=== PATIENT | female | born 1930 | race Asian ===

== ENCOUNTER 2020-02-21 11:44 | Emergency (ER) | payer OTHER ==
[~2020-02-21] VITALS: Ht 157.5 cm; Wt 54.4 kg
[2020-02-21 11:44] VITALS: BP 134/69
--- NOTE | 2020-02-21 11:55 | NUR ---
89 Y/O F BIBA FROM [facility] C/O COFFEE GROUND EMESIS. PER [facility], CREW STATES ON 02/19, PT HAD ONE EPISODE OF VOMITING COFFEE GROUND EMESIS OF UNKNOWN AMOUNT. PT PRESENTS A&O X 1 TO SELF AND NONVERBAL. [facility] CREW STATES PER FACILITY, PT BASELINE SATURATION @ 88% ON ROOM AIR. PT PRESENT TO ER WITH BASELINE SATURATION 98% ON ROOM AIR. PER [facility], UNKNOWN OF PT BASELINE. LUNG SOUNDS CLEAR AND NO RESPIRATORY DISTRESS NOTED. PT PLACED ON SUPERVISOR TITLE, BLOOD PRESSURE CUFF, PULSE OX. VSS. BED LOCKED IN LOWEST POSITION, SIDE RAILS X2, CALL LIGHT IN REACH PMH: HTN, DM, HYPERLIPIDEMIA, ALZHEIMERS, SCHIZOPHRENIA NKA MEDS: ATORVASTATIN, METROPOLOL, XARELTO
--- NOTE | 2020-02-21 12:20 | NUR ---
CT AT BEDSIDE, WHEELED PT GURNEY TO CT. PT DISCONNECTED FROM HOROLOGIST.
--- NOTE | 2020-02-21 12:25 | NUR ---
LABS COLLECTED AND WALKED TO LAB. LEFT WITH COUNSELING PROGRAM LEADER
[2020-02-21 12:31] LABS: BASOPHILS % (AUTO) 0.3 % (0.0-2.0); EOSINOPHILS % (AUTO) 0.1 % (0.0-4.0); HEMATOCRIT 43.9 % (36-48); HEMOGLOBIN 14.4 g/dL (12.0-16.0); LYMPHOCYTES # (AUTO) 1.5 K/uL (2.5-16.5); LYMPHOCYTES % (AUTO) 15.1 % (20.5-51.1); MEAN CORPUSCULAR HEMOGLOBIN 28 pg (27-31); MEAN CORPUSCULAR HGB CONC 33 g/dL (33-37); MEAN CORPUSCULAR VOLUME 84.5 fL (80-94); MONOCYTES # (AUTO) 0.5 K/uL (0.8-1.0); MONOCYTES % (AUTO) 5.4 % (1.7-9.3); NEUTROPHILS # (AUTO) 7.7 K/uL (1.8-7.7); NEUTROPHILS % (AUTO) 79.1 % (42.2-75.2); PLATELET COUNT (AUTO) 96 K/uL (140-450); RED CELL DISTRIBUTION WIDTH 15.7 % (11.6-13.7); WHITE BLOOD COUNT (AUTO) 9.7 K/uL (4.8-10.8)
[2020-02-21] MEDS: FAMOTIDINE 20 MG/2 ML VIAL IVP ONE (12:39)
[2020-02-21] MEDS: ONDANSETRON 4 MG/2 ML VIAL IVP ONE (12:39)
[2020-02-21] MEDS: NACL 0.9% 500 ML IV ONE (12:40)
--- NOTE | 2020-02-21 12:40 | NUR ---
PT RETURNED FROM CT. PT PLACED BACK ONTO UNIVERSITY TEACHER, BLOOD PRESSURE CUFF, PULSE OX. BED LOCKED IN LOWEST POSITION, SIDE RAILS X2, CALL LIGHT IN REACH
[2020-02-21 12:51] LABS: ALBUMIN 3.5 g/dL (3.4-5.0); ANION GAP 13.7 (8-16); ASPARTATE AMINOTRANSFERASE 33 U/L (15-37); CARBON DIOXIDE 26.2 mmol/L (21-32); CHLORIDE 99 mmol/L (98-107); CREATININE 1.3 mg/dL (0.6-1.3); GLUCOSE 274 mg/dL (74-106); POTASSIUM 3.9 mmol/L (3.5-5.1); SODIUM SERUM 135 mmol/L (136-145); TOTAL BILIRUBIN 0.7 mg/dL (0.0-1.0); UREA NITROGEN, BLOOD 39 mg/dL (7-18)
--- NOTE | 2020-02-21 13:30 | NUR ---
PT ASLEEP IN BED. EQUAL CHEST RISE AND FALL. BED LOCKED AND IN LOWEST POSITION. SIDE RAILS X2. VISUAL MERCHANDISING ASSISTANT/PULSE OX IN PLACE. CALL LIGHT IN REACH.
--- NOTE | 2020-02-21 14:15 | NUR ---
CALLED [facility] TO GIVE REPOR TO CHRIS FREIRE. ANSWERED ALL QUESTIONS AND INFORMED HER THAT TRANSPORT WILL BE ARRANGED BACK TO FACILITY.
--- NOTE | 2020-02-21 15:00 | NUR ---
PT PULLED OUT IV
--- NOTE | 2020-02-21 16:47 | NUR ---
PT ASLEEP IN BED. EQUAL CHEST RISE AND FALL. BED LOCKED AND IN LOWEST POSITION. SIDE RAILS X2. CELLULAR PLASTICS CUTTER/PULSE OX IN PLACE. CALL LIGHT IN REACH.
[2020-02-21 19:16] VITALS: BP 136/79
--- NOTE | 2020-02-21 19:16 | NUR ---
Patient discharged with v/s stable. Written and verbal after care instructions given and explained. Patient verbalized understanding. Ambulance Transport to correction. All questions addressed prior to discharge. Advised to follow up with PMD.
== END 2020-02-21 19:16 | disposition home or self-care (01) ==
LOC: MED 11:44
DX: R11.10 Vomiting, unspecified (principal)
CPT/HCPCS: 36415; 74176; 80053; 83690; 85025; 96374; 96375; 99285; J2405; J3490; J7030

== ENCOUNTER 2020-02-27 17:36 | Inpatient (IN) | payer OTHER, SELFPAY ==
--- NOTE | 2019-03-03 07:25 | NUR ---
RECEIVED PT FROM LUNCHROOM SUPERVISOR NURSE, PT IS ALOC, WITH A RT EJ INSERTED, SAFETY AND FALL PRECAUTION IN PLACE, NO SIGN OF DISTRESS NOTED AND WILL MONITOR PT.
[~2020-02-27] VITALS: Ht 167.6 cm; Wt 40.8 kg
[2020-02-27 17:36] VITALS: BP 96/66
[2020-02-27] MEDS ORDERED: ADENOSINE 6 MG/2 ML VIAL IVP ONE (17:50)
[2020-02-27] MEDS ORDERED: NACL 0.9% 1,000 ML IV ONE (17:50)
[2020-02-27] MEDS ORDERED: DRON5CAP6 PO (18:04)
[2020-02-27] MEDS ORDERED: XAR10 PO (18:04)
[2020-02-27] MEDS ORDERED: ATOR10TA PO (18:04)
[2020-02-27] MEDS ORDERED: BEN50 PO (18:04)
[2020-02-27] MEDS ORDERED: METO50TE2 PO (18:04)
[2020-02-27] MEDS ORDERED: AMLO2.5T PO (18:04)
[2020-02-27] MEDS ORDERED: CALC-1214 PO (18:04)
[2020-02-27] MEDS ORDERED: MULT-2112 PO (18:04)
[2020-02-27 18:25] LABS: BASOPHILS % (AUTO) 0.3 % (0.0-2.0); HEMATOCRIT 44.2 % (36-48); HEMOGLOBIN 14.2 g/dL (12.0-16.0); LYMPHOCYTES # (AUTO) 0.8 K/uL (2.5-16.5); LYMPHOCYTES % (AUTO) 14.6 % (20.5-51.1); MEAN CORPUSCULAR HEMOGLOBIN 27 pg (27-31); MEAN CORPUSCULAR HGB CONC 32 g/dL (33-37); MONOCYTES # (AUTO) 0.6 K/uL (0.8-1.0); MONOCYTES % (AUTO) 11.1 % (1.7-9.3); NEUTROPHILS # (AUTO) 4.3 K/uL (1.8-7.7); PLATELET COUNT (AUTO) 113 K/uL (140-450); RED CELL DISTRIBUTION WIDTH 16.2 % (11.6-13.7); WHITE BLOOD COUNT (AUTO) 5.8 K/uL (4.8-10.8)
[2020-02-27] MEDS ORDERED: DILTIAZEM 25 MG/5 ML VIAL IVP ONE ×2 (18:30→19:45)
[2020-02-27] MEDS ORDERED: DILTIAZEM 125 MG in DEXTROSE 5% 100 ML IV ONE (18:30)
[2020-02-27 18:35] LABS: PROTHROMBIN TIME 9.4 secs (10.8-13.4)
[2020-02-27 18:37] LABS: ANION GAP 14.8 (8-16); ASPARTATE AMINOTRANSFERASE 49 U/L (15-37); CARBON DIOXIDE 29.7 mmol/L (21-32); CHLORIDE 115 mmol/L (98-107); CREATININE 1.7 mg/dL (0.6-1.3); GLUCOSE 112 mg/dL (74-106); LIPASE 121 U/L (73-393); POTASSIUM 3.5 mmol/L (3.5-5.1); TOTAL BILIRUBIN 0.7 mg/dL (0.0-1.0); UREA NITROGEN, BLOOD 55 mg/dL (7-18)
[2020-02-27 18:47] LABS: SODIUM SERUM 156 mmol/L (136-145)
[2020-02-27 19:05] LABS: APPEARANCE,URINE CLOUDY (CLEAR); BILIRUBIN,URINE NEGATIVE (NEGATIVE); BLOOD, URINE 2+ (NEGATIVE); COLOR,URINE YELLOW (YELLOW); LEUKOCYTE ESTERASE ,URINE 2+ (NEGATIVE); NITRITE, URINE NEGATIVE (NEGATIVE); UGLUCOSE 1+ (NEGATIVE)
--- NOTE | 2020-02-27 19:09 | NUR ---
REPORT RECEIVED FROM CHRIS BRAR. ASSUMED PATIENT CARE.
[2020-02-27 19:18] LABS: RBC,URINE 11-20 (MOD) /HPF (0-5); YEAST,URINE Many /HPF (None Seen)
[2020-02-27] MEDS ORDERED: ASPIRIN 600 MG SUPP RC ONE (19:25)
--- NOTE | 2020-02-27 19:30 | NUR ---
89 Y/O FEMALE BROUGHT IN FOR SVT. PATIENT IS GCS 11; UNABLE TO SPEAK; MUMBLES. HAND STUDIO DIRECTOR ARE STRONG BILATERALLY; SKIN IS DRY AND INTACT; BLE EDEMA +1; RESPIRATIONS ARE EVEN AND UNLABORED; HR: TACCHYCARDIA 120S-160S. GI-ABDOMINAL REGION SOFT; NON DISTENDED; : INCONTINENT; MUSKULOSKELETAL: UNABLE TO AMBULATE. ERMD MADE AWARE; WILL CONTINUE TO MONITOR.
[2020-02-27] MEDS ORDERED: NACL 0.9% 500 ML IV ONE (19:40)
[2020-02-27] MEDS ORDERED: cefTRIAXone 1,000 MG VIAL ONE (20:00)
[2020-02-27] MEDS ORDERED: MORPHINE SULFATE 4 MG/ML SYR IVP PRN (20:20)
[2020-02-27] MEDS ORDERED: MAG SULF 2000 MG/WATER PREMIX 50 ML IV PRN (20:20)
[2020-02-27] MEDS ORDERED: HYDROcodone/APAP 5/325 MG 1 TAB TAB PO PRN (20:20)
[2020-02-27] MEDS ORDERED: ONDANSETRON 4 MG/2 ML VIAL IVP PRN (20:20)
[2020-02-27] MEDS ORDERED: POTASSIUM CHLORIDE 10 MEQ TABER PO PRN (20:20)
[2020-02-27] MEDS ORDERED: ACETAMINOPHEN 325 MG TAB PO PRN (20:20)
[2020-02-27] MEDS: DEXT 5% / NACL 0.45% 1,000 ML IV SCH (20:20)
[2020-02-27] MEDS: DILTIAZEM 125 MG in DEXTROSE 5% 100 ML IV SCH (20:46)
--- NOTE | 2020-02-27 20:52 | NUR ---
HEART RATE AT 120BPM; INCREASED TO 15MG/ HR. WILL CONTINUE TO MONITOR
--- NOTE | 2020-02-27 21:00 | NUR ---
PATIENT RESTING IN BED. HR. IS AT 97BPM; PATIENT TRIES TO TAKE OFF LEADS; REDIRECTED PATIENT
--- NOTE | 2020-02-27 22:34 | NUR ---
PAGED DR. WALDROP REGARDING LACTIC 2.9
--- NOTE | 2020-02-27 23:33 | NUR ---
PATIENT'S HEART RATE IS 166 ON 15MG/HR. PAGED DR. WALDROP. AWAITING FOR RESPONSE.
--- NOTE | 2020-02-27 23:38 | NUR ---
SPOKE WITH DR. WALDROP CONCERNING HEART RATE; CONTINUE D5W WITH 0.45 NACL 1000ML TO SEE IF HEART RATE WILL DECREASE.
--- NOTE | 2020-02-28 01:24 | NUR ---
PATIENT RESTING IN BED QUIETLY WITH EYES CLOSED. DECREASED 10MG/HR TO 5 MG/HR. PATIENT'S HR IS NOW AT 87.
--- NOTE | 2020-02-28 02:00 | NUR ---
PATIENT IS RESTING WITH EYES CLOSED. WILL CONTINUE TO MONITOR.
[2020-02-28] MEDS: hePARIN / DEXT 5% PREMIX 250 ML IV PRN ×3 (02:50→17:08)
--- NOTE | 2020-02-28 03:00 | NUR ---
PATIENT TRIED TO REMOVE LEADS; HAD TO REDIRECT PATIENT.
[2020-02-28] MEDS ORDERED: DILTIAZEM 125 MG/25 ML VIAL IV ONE (04:14)
--- NOTE | 2020-02-28 04:24 | NUR ---
PATIENT HR AT 75 BPM; RESTING WITH EYES CLOSED. WILL CONTINUE TO MONITOR.
[2020-02-28] MEDS ORDERED: MAGN400S60 PO (05:23)
--- NOTE | 2020-02-28 05:23 | NUR ---
PATIENT RESTING WITH EYES CLOSED. B/P: 98/53; HR: 78 BPM.
[2020-02-28] MEDS: DILTIAZEM 125 MG in DEXTROSE 5% 100 ML IV SCH (05:29)
--- NOTE | 2020-02-28 05:54 | NUR ---
HR 79; BP: 95/59; 100% ON RA STOPPED DILTIAZEM.
--- NOTE | 2020-02-28 06:08 | NUR ---
KEYA SENT TO LAB
--- NOTE | 2020-02-28 06:42 | NUR ---
PATIENT IS COVID+
--- NOTE | 2020-02-28 06:44 | NUR ---
PAGED DR. WALDROP REGARDING ELINA LO.
--- NOTE | 2020-02-28 07:08 | NUR ---
Pt report given to CHRIS BRAR. Transfer of care at this time.
[2020-02-28] MEDS ORDERED: HEPARIN PER PHARMACY MC PRN (08:35)
[2020-02-28] MEDS ORDERED: CRUSHER, PILL MC ONE (08:40)
[2020-02-28 09:02] LABS: BASOPHILS % (AUTO) 0.9 % (0.0-2.0); EOSINOPHILS % (AUTO) 0.1 % (0.0-4.0); HEMATOCRIT 44.7 % (36-48); HEMOGLOBIN 14.5 g/dL (12.0-16.0); LYMPHOCYTES # (AUTO) 0.9 K/uL (2.5-16.5); LYMPHOCYTES % (AUTO) 16.2 % (20.5-51.1); MEAN CORPUSCULAR HEMOGLOBIN 28 pg (27-31); MEAN CORPUSCULAR HGB CONC 33 g/dL (33-37); MEAN CORPUSCULAR VOLUME 85.1 fL (80-94); MONOCYTES # (AUTO) 0.4 K/uL (0.8-1.0); MONOCYTES % (AUTO) 7.3 % (1.7-9.3); NEUTROPHILS # (AUTO) 4.4 K/uL (1.8-7.7); NEUTROPHILS % (AUTO) 75.5 % (42.2-75.2); PLATELET COUNT (AUTO) 111 K/uL (140-450); RED BLOOD CELL COUNT(AUTO) 5.25 MIL/uL (4.20-5.40); RED CELL DISTRIBUTION WIDTH 16.4 % (11.6-13.7); WHITE BLOOD COUNT (AUTO) 5.8 K/uL (4.8-10.8)
[2020-02-28 09:22] LABS: ALBUMIN 2.8 g/dL (3.4-5.0); ANION GAP 18.1 (8-16); ASPARTATE AMINOTRANSFERASE 49 U/L (15-37); CARBON DIOXIDE 20.5 mmol/L (21-32); CHLORIDE 116 mmol/L (98-107); CHOL/HDL RATIO 2.2 (1-4.5); CREATININE 1.2 mg/dL (0.6-1.3); GLUCOSE 365 mg/dL (74-106); HDL CHOLESTEROL 72 mg/dL (40-60); LDL (CALC) 63 mg/dL (60-100); POTASSIUM 3.6 mmol/L (3.5-5.1); SODIUM SERUM 151 mmol/L (136-145); TOTAL BILIRUBIN 0.9 mg/dL (0.0-1.0); TRIGLYCERIDES 115 mg/dL (30-150); UREA NITROGEN, BLOOD 46 mg/dL (7-18)
--- NOTE | 2020-02-28 09:50 | NUR ---
PATIENT HAS BEEN SCREENED AND CATEGORIZED HIGH NUTRITION RISK. PATIENT WILL BE SEEN WITHIN 1-2 DAYS OF ADMISSION. 02/28/20-02/29/[address]
--- NOTE | 2020-02-28 10:11 | NUR ---
Patient will be admitted to care of DR RAYMOND. Admited to . Will go to room. Belongings list completed. Report to . ALL QUESTIONS ANSWERED, ENDORSED PT IN STABLE CONDITION, VSS, IN NAD. PTS FAMILY IN AGREEMENT WITH ADMISSION. HEPARIN GTT @ 500 UNITS/HR PER PROTOCOL.
--- NOTE | 2020-02-28 10:15 | NUR ---
RECEIVED THIS 89 YEAR OLD FEMALE, PER ELIANA FROM ER, AWAKE, ALERT, NO VERBAL OUTPUT NOTED, BREATHING SPONTANEOUSLY AT ROOM AIR, 02SAT-93%, NOT IN DISTRESS. WITH ONGOING IV FLUID D5 0.45% NS AT 80ML/HOUR AND HEPARIN DRIP AT 500UNITS/HOUR, 5ML/HOUR INFUSING AT RT AC G20 IV CANNULA, APPARENTLY SWELLING NOTED, REMOVED AND CHANGED TO TO RT FOREARM. SAFETY MEASURES IN PLACE AND CONTINUE MONITOR
--- NOTE | 2020-02-28 12:54 | NUR ---
AFTERNOON CARE DONE BY FLEET DIRECTOR, SKIN IS INTACT NOTED.
--- NOTE | 2020-02-28 13:21 | NUR ---
SMALL BUSINESS SALES REPRESENTATIVE NOTE: Patient's Orientation Unable To Assess Information Provided By HUY - [facility] [place] SW WAS UNABLE TO MEET PATIENT AT BEDSIDE. TAD COMPLETED ASSESSMENT WITH HUY FROM [facility]. Pipefitter, Realtionship and Phone Number BRANDEN DUEÑAS DAUGHTER [phone] FERNANDEZ DUEÑAS SON [phone] Healthcare Power of Internet Marketer No Does Patient Have a POLST Yes Identifying Problems No Social Work Triggers Is A Social Work Consult Needed No Mandate Report Filed No Explanation Of Identifying Problems PATIENT IS AN 89-YEAR-OLD FEMLAE ADMITTED FOR SEPSIS. PATIENT HAS PMHX OF DIABETES, HYPERTENSION, HYPERLIPEDEMIA, AND ALZHEIMER'S. Admitted From [facility]Term Facility [facility] - [phone] Pre-Admission Level Of Functioning Status Total Care Prior Resources/Services Used In Last 12 Months SNF Sn[facility] Prior Resources/Service Comments PATIENT IS MCC AND ON A BED HOLD. Prior DME Wheelchair Dialysis Comments N/A Patient Had Caregiver No Home Support No Caregiver Issues Financial Issues No Known Financial Issue Referral To The Financial Counselor Needed No Factors/Needs No D/C Needs Identified Pt/Rep Participated In Discharge Plan Yes Patient/Family Agress With Discharge Plan Yes Discharge Plan Comments TENTATIVE DISCHARGE PLAN IS FOR PATIENT TO RETURN TO [facility]. DC Plan Status Initiated
--- NOTE | 2020-02-28 14:54 | NUR ---
ASLEEP, NOT IN DISTRESS NOTED
--- NOTE | 2020-02-28 15:47 | NUR ---
DC PLANNIN YRS OLD FEMALE PATIENT WAS AD[place] [facility] [place] DX OF SEPSIS/ NEW UNCONTROLLED A-FIB. COVID TEST POSITIVE. STARTED COVID TREATMENT ROCEPHIN AND AZITHROMYCIN . ON ROOM AIR SATING 94% NA+ 151 . URINE AND BLOOD CULTURE PENDING. CONSULTED WITH NEPHRO AND HOMEBOUND TEACHER. DC PLAN TO GO BACK [place] [facility] CM TO FOLLOW Addendum: 03/03/20 at 1222 by Tonya Lucas CM DC RECEPTION MANAGER: RECEIVED ORDER TO DC PATIENT BACK [place] [facility] FAXED PATIENTS CLINICALS. PENDING BED NUMBER. AUTH FOR TRANSPORTATION [id number] Addendum: 03/03/20 at 1353 by Tonya Lucas CM DC RECEPTION MANAGER: PATIENT CAN RETURN TO ROOM A UNDER DR. RAYMOND. SET UP TRANSPORTATION WITH [facility] FOR 4:00 PM Addendum: 03/03/20 at 1356 by Tonya Lucas CM LAVONNE HARE: [address] [address] [facility] [facility] [address] [facility] [phone] Addendum: 03/03/20 at 1357 by Tonya Lucas CM LAVONNE HARE: NOTIFIED CHRIS AND HUY AT [facility] [place]SP[place]ATION.
[2020-02-28] MEDS: DEXT 5% / NACL 0.45% 1,000 ML IV SCH ×2 (15:49→20:25)
--- NOTE | 2020-02-28 16:10 | NUR ---
AWAKE, NOT IN DISTRESS NOTED
--- NOTE | 2020-02-28 17:08 | NUR ---
PTT-84.9, ABOVE HEPARIN DRIP CHANGED TO 400UNITS/HOUR, 4ML/HOUR, VERIFIED BY SECOND RN.
--- NOTE | 2020-02-28 19:29 | NUR ---
ENDORSED TO RETOUCHER PHOTOENGRAVING IN STABLE CONDITION FOR CONTINUITY OF CARE
--- NOTE | 2020-02-28 19:30 | NUR ---
RECEIVED ENDORSEMENT FROM AM SHIFT RN. PT IS AWAKE AND ALERT, NON VERBAL, ON ROOM AIR, NO SOB, NO DISTRESS, SAFETY MEASURES IN PLACE PLAN OF CARE DISCUSSED, CALL LIGHT WITHIN REACH.
[2020-02-28 20:00] VITALS: BP 151/95
[2020-02-28] MEDS ORDERED: cefTRIAXone 1,000 MG VIAL ONE (20:05)
--- NOTE | 2020-02-28 20:30 | NUR ---
PT AWAKE, ROCEPHIN IV GIVEN ORDERED, NO A/R NOTED. HEPARIN 3000 U, NOT GIVEN BECAUSE, PT IS CURRENTLY ON HEPARIN DRIP AT 400 U. CALL LIGHT WITHIN REACH.
[2020-02-29] VITALS: BP 163/87
[2020-02-29] MEDS: hePARIN / DEXT 5% PREMIX 250 ML IV PRN ×3 (00:27→19:02)
--- NOTE | 2020-02-29 00:49 | NUR ---
INFORMED ELECTRICIAN ASSISTANT DR. LE: BP OF 163/87, PT IS CALM, NO DISTRESS, ORDERED LOPRESSOR 5 MG IV Q6 PRN, NOTED AND CARRIED OUT, WILL MONITOR. CALL LIGHT WITHIN REACH.
--- NOTE | 2020-02-29 00:50 | NUR ---
INFORMED ALL CALL RE: TROP 0.479, PT IS ON HEPARIN DRIP, NNO, WILL CONTINUE TO MONITOR.
[2020-02-29] MEDS: METOPROLOL 5 MG/5 ML VIAL IV PRN (00:57)
[2020-02-29 04:00] VITALS: BP 155/67
[2020-02-29] MEDS: DEXT 5% / NACL 0.45% 1,000 ML IV SCH ×2 (04:52→20:24)
--- NOTE | 2020-02-29 07:52 | NUR ---
PT IS STABLE, NO SOB, NO DISTRESS, BEDSIDE ENDORSEMENT GIVEN TO AM SHIFT RN FOR CONTINUITY OF CARE.
--- NOTE | 2020-02-29 07:58 | NUR ---
RECEIVED REPORT FROM NIGHTSHIFT NURSE. PT RESTING IN BED. ABLE TO MAKE NEEDS KNOWN. RESPIRATIONS EVEN AND UNLABORED WITH NO SOB OR RESPIRATORY DISTRESS. SKIN WARM AND DRY TO TOUCH. IV SITE IN LFA 22G AND RAC 20G IS CLEAN, DRY, AND INTACT. SAFETY MEASURES IN PLACE. WILL CONTINUE TO MONITOR
[2020-02-29 08:00] VITALS: BP 169/75
[2020-02-29 09:53] LABS: BASOPHILS % (AUTO) 0.1 % (0.0-2.0); EOSINOPHILS % (AUTO) 0.1 % (0.0-4.0); HEMOGLOBIN 13.9 g/dL (12.0-16.0); LYMPHOCYTES # (AUTO) 0.8 K/uL (2.5-16.5); LYMPHOCYTES % (AUTO) 13.5 % (20.5-51.1); MEAN CORPUSCULAR HEMOGLOBIN 27 pg (27-31); MEAN CORPUSCULAR HGB CONC 32 g/dL (33-37); MEAN CORPUSCULAR VOLUME 84.1 fL (80-94); MONOCYTES # (AUTO) 0.3 K/uL (0.8-1.0); MONOCYTES % (AUTO) 4.9 % (1.7-9.3); NEUTROPHILS # (AUTO) 4.8 K/uL (1.8-7.7); NEUTROPHILS % (AUTO) 81.4 % (42.2-75.2); PLATELET COUNT (AUTO) 127 K/uL (140-450); RED BLOOD CELL COUNT(AUTO) 5.12 MIL/uL (4.20-5.40); RED CELL DISTRIBUTION WIDTH 15.9 % (11.6-13.7); WHITE BLOOD COUNT (AUTO) 5.9 K/uL (4.8-10.8)
--- NOTE | 2020-02-29 10:30 | NUR ---
PT PTT IS 38.4. ADJUSTED HEP DRIP PER PROTOCO. PT TOLERATED WELL. SAFETY MEASURES IN PLACE. WILL CONTINUE TO MONITOR
[2020-02-29 10:55] LABS: ANION GAP 13.7 (8-16); ASPARTATE AMINOTRANSFERASE 49 U/L (15-37); CARBON DIOXIDE 25.9 mmol/L (21-32); CHLORIDE 111 mmol/L (98-107); GLUCOSE 346 mg/dL (74-106); MAGNESIUM 1.3 mg/dL (1.8-2.4); SODIUM SERUM 148 mmol/L (136-145); TOTAL BILIRUBIN 0.9 mg/dL (0.0-1.0); UREA NITROGEN, BLOOD 23 mg/dL (7-18)
[2020-02-29 11:08] LABS: POTASSIUM 2.6 mmol/L (3.5-5.1)
--- NOTE | 2020-02-29 11:45 | NUR ---
(02/29/20) RD INITIAL ASSESSMENT COMPLETED PLEASE REFER TO NUTRITION ASSESSMENT UNDER CARE ACTIVITY FOR ESTIMATED NUTRITIONAL NEEDS. RD RECOMMENDATIONS: 1. CONTINUE NPO MEDICALLY APPROPRIATE. 2. IF/WHEN MEDICALLY APPROPRIATE, CONSIDER CCHO DIET TOLERATED. 3. CONSULT RDN PRN. 4. RD WILL F/U 2-3 DAYS; HIGH RISK. SUNIL WARREN, , RDN
[2020-02-29 12:00] VITALS: BP 146/81
[2020-02-29] MEDS ORDERED: KCL 20 MEQ/WATER INJ PREMIX 200 ML IV SCH (13:00)
--- NOTE | 2020-02-29 13:44 | NUR ---
ADMINISTERED SCHED MED PRESCRIBED PER MD ORDER. MEDICATION EDUCATION PERFORMED. PT VERBALIZED UNDERSTANDING. SAFETY MEASURES IN PLACE. WILL CONTINUE TO MONITOR
[2020-02-29 16:00] VITALS: BP 153/85
--- NOTE | 2020-02-29 17:30 | NUR ---
HOURLY ROUNDING. PT RESTING IN BED. FLACC 0. RESPIRATIONS EVEN AND UNLABORED WITH NO SOB OR RESPIRATORY DISTRESS. SKIN WARM AND DRY TO TOUCH. SAFETY MEASURES IN PLACE. WILL CONTINUE TO MONITOR
--- NOTE | 2020-02-29 18:00 | NUR ---
PT PTT IS 91.1. PER PROTOCOL, HOLDING HEP FOR ONE HOUR. PT TOLERATED WELL. SAFETY MEASURES IN PLACE. WILL CONTINUE TO MONITOR
--- NOTE | 2020-02-29 19:00 | NUR ---
RESTARTED PT HEPARIN DRIP AND ADJUSTED ACCORDING TO PROTOCOL. PT TOLERATED WELL. WILL CONTINUE TO MONITOR
--- NOTE | 2020-02-29 19:25 | NUR ---
ENDORSED TO NIGHTSHIFT FOR CONTINUITY OF CARE. PT IS STABLE
--- NOTE | 2020-02-29 19:26 | NUR ---
RECEIVED ENDORSEMENT FROM AM SHIFT RN. PT IS AWAKE AND ALERT, NON VERBAL, DNR, ON ROOM AIR, NO SOB, NO DISTRESS, SAFETY MEASURES IN PLACE, PLAN OF CARE DISCUSSED, CALL LIGHT WITHIN REACH.
[2020-02-29 20:00] VITALS: BP 154/79
--- NOTE | 2020-02-29 20:17 | NUR ---
ROCEPHIN IV GIVEN ORDERED, NO A/R NOTED, HEPARIN 3000 UNITS NOT GIVEN BECAUSE PT IS ALREADY ON HEPARIN DRIP AT 200 UNITS / HR. PTT IS 91.9 H, NEXT PTT DRAW WILL BE ON 03/01/20 AT 0100. CALL LIGHT WITHIN REACH.
[2020-03-01] VITALS: BP 149/82
[2020-03-01 01:39] LABS: EOSINOPHILS % (AUTO) 0.2 % (0.0-4.0); HEMATOCRIT 39.9 % (36-48); HEMOGLOBIN 13.2 g/dL (12.0-16.0); LYMPHOCYTES # (AUTO) 0.8 K/uL (2.5-16.5); LYMPHOCYTES % (AUTO) 12.8 % (20.5-51.1); MEAN CORPUSCULAR HEMOGLOBIN 27 pg (27-31); MEAN CORPUSCULAR HGB CONC 33 g/dL (33-37); MONOCYTES # (AUTO) 0.3 K/uL (0.8-1.0); MONOCYTES % (AUTO) 5.2 % (1.7-9.3); NEUTROPHILS # (AUTO) 4.9 K/uL (1.8-7.7); NEUTROPHILS % (AUTO) 81.8 % (42.2-75.2); PLATELET COUNT (AUTO) 135 K/uL (140-450); RED CELL DISTRIBUTION WIDTH 15.5 % (11.6-13.7)
[2020-03-01 01:42] LABS: ALBUMIN 2.7 g/dL (3.4-5.0); ASPARTATE AMINOTRANSFERASE 39 U/L (15-37); CARBON DIOXIDE 23.5 mmol/L (21-32); CHLORIDE 111 mmol/L (98-107); CREATININE 0.9 mg/dL (0.6-1.3); GLUCOSE 267 mg/dL (74-106); MAGNESIUM 1.8 mg/dL (1.8-2.4); SODIUM SERUM 147 mmol/L (136-145); UREA NITROGEN, BLOOD 19 mg/dL (7-18)
[2020-03-01 01:47] LABS: POTASSIUM 2.5 mmol/L (3.5-5.1)
[2020-03-01] MEDS: KCL 20 MEQ/WATER INJ PREMIX 200 ML IV PRN (02:19)
--- NOTE | 2020-03-01 02:19 | NUR ---
KCL 20 MEQ PREMIX IV PRN GIVEN FOR K 2.5. TOLERATED WELL, KEPT CLEAN, DRY AND COMFORTABLE, CALL LIGHT WITHIN REACH.
[2020-03-01] MEDS: hePARIN / DEXT 5% PREMIX 250 ML IV PRN ×2 (02:58→18:13)
[2020-03-01 04:00] VITALS: BP 155/99
--- NOTE | 2020-03-01 07:28 | NUR ---
PT IS STABLE, NO DISTRESS, NO SOB, NO ACUTE CHANGES THE WHOLE SHIFT, ENDORSED TO AM SHIFT RN FOR CONTINUITY OF CARE.
--- NOTE | 2020-03-01 07:34 | NUR ---
RECEIVED REPORT FROM NIGHTSHIFT NURSE. PT RESTING IN BED. FLACC 0. RESPIRATIONS EVEN AND UNLABORED WITH NO SOB OR RESPIRATORY DISTRESS. IV SITE IN RAC 20G AND RFA 20G ARECLEAN, DRY, AND INTACT. SKIN WARM AND DRY TO TOUCH. SAFETY MEASURES IN PLACE. WILL CONTINUE TO MONITOR
[2020-03-01 08:00] VITALS: BP 154/73
--- NOTE | 2020-03-01 10:27 | NUR ---
PT APTT IS 48.4 AND PER PROTOCOL, NO ADJUSTMENT IS NEEDED. PT WILL RESUME ON 300 UNITS. SAFETY MEASURES IN PLACE. WILL CONTINUE TO MONITOR
[2020-03-01] MEDS ORDERED: KCL 20 MEQ/WATER INJ PREMIX 100 ML IV ONE ×2 (10:35)
[2020-03-01] MEDS ORDERED: MAGNESIUM HYDROXIDE 2400 MG/30 ML UDC PO PRN (10:35)
[2020-03-01] MEDS: DEXT 5% / NACL 0.45% 1,000 ML IV SCH ×2 (10:55→23:20)
--- NOTE | 2020-03-01 11:08 | NUR ---
ADMINISTERED SCHED MED PRESCRIBED PER MD ORDER. PT TOLERATED WELL. MEDICATION EDUCATION. PT VERBALIZED UNDERSTANDING. SAFETY MEASURES IN PLACE. WILL CONTINUE TO MONITOR
[2020-03-01 12:00] VITALS: BP 123/98
--- NOTE | 2020-03-01 13:04 | NUR ---
PT TOLERATING ORAL LUNCH. NO SIGNS OF DISTRESS OR CHOKING. SAFETY MEASURES IN PLACE. WILL CONTINUE TO MONITOR
[2020-03-01 16:00] VITALS: BP 90/65
[2020-03-01] MEDS ORDERED: METOPROLOL 5 MG/5 ML VIAL IV PRN (16:30)
[2020-03-01] MEDS: METOPROLOL 5 MG/5 ML VIAL IV PRN (16:37)
--- NOTE | 2020-03-01 16:37 | NUR ---
PT HAD EPISODE OF UNCONTROLLED AFIB WITH HR RANGING BETWEEN 160-177. BP 189/79. PRN METOPROLOL ADMINISTERED PRESCRIBED PER MD ORDER. PT TOLERATED WELL. SAFETY MEASURES IN PLACE. WILL CONTINUE TO MONITOR
--- NOTE | 2020-03-01 17:10 | NUR ---
PT PTT CAME BACK AT 51.5. NO CHANGE NECESSARY PER PROTOCOL. SAFETY MEASURES IN PLACE. WILL CONTINUE TO MONITOR
--- NOTE | 2020-03-01 18:27 | NUR ---
REPLACED BAG OF HEPARIN AT SAME RATE. WILL CONTINUE TO MONITOR
--- NOTE | 2020-03-01 19:30 | NUR ---
RECEIVED BEDSIDE REPORT FROM DAY SHIFT NURSE. PATIENT AWAKE, RESPIRATION EVEN UNLABORED ON ROOM AIR. NO DISTRESS NOTED. SKIN IS WARM AND DRY. IV PATENT AND INTACT. HEPARIN DRIP NOTED RUNNING AT 300UNITS/HR. PLAN OF CARE WAS DISCUSSED. ALL SAFETY MEASURES IN PLACE. BED IS AT LOW POSITION. CALL LIGHT WITHIN REACH. WILL CONTINUE TO MONITOR
--- NOTE | 2020-03-01 19:37 | NUR ---
ENDORSED TO NIGHTSHIFT FOR CONTINUITY OF CARE. PT IS STABLE
[2020-03-01 20:00] VITALS: BP 159/67
[2020-03-01] MEDS: ATORVASTATIN 20 MG TAB PO SCH (20:50)
[2020-03-01] MEDS: METOPROLOL SUCCINATE 50 MG TABER PO SCH (20:50)
[2020-03-01] MEDS ORDERED: NON-FORMULARY ITEM (Dronabinol 2.5 MG) PO SCH (21:00)
--- NOTE | 2020-03-01 21:29 | NUR ---
ALL SCHEDULED MEDS WERE GIVEN PER ORDER. HOLD HEPARIN SUBQ, PATIENT IS ON HEPARIN DRIP. WILL CONTINUE TO MONITOR
--- NOTE | 2020-03-01 23:50 | NUR ---
VITALS WERE TAKEN
[2020-03-02] VITALS: BP 154/91
[2020-03-02] MEDS: hePARIN / DEXT 5% PREMIX 250 ML IV PRN ×2 (01:21→12:21)
--- NOTE | 2020-03-02 01:21 | NUR ---
INCREASED PATIENT HEPARIN DRIP TO 100 UNITS. PATIENT HEPARIN DRIP NOW IS RUNNING AT 400UNITS/HR. WILL CONTINUE TO MONITOR.
--- NOTE | 2020-03-02 02:45 | NUR ---
MADE ROUNDS PATIENT SLEEPING RESPIRATION EVEN UNLABORED ON ROOM AIR. NO DISTRESS NOTED. WILL CONTINUE TO MONITOR.
[2020-03-02 04:00] VITALS: BP 125/73
--- NOTE | 2020-03-02 04:30 | NUR ---
MORNING CARE PROVIDED.
--- NOTE | 2020-03-02 06:00 | NUR ---
PATIENT IV ACCIDENTALLY GOT PULLED OUT. NO ACTIVE BLEEDING NOTED, CANNULA TIP INTACT. INSERTED NEW IV ON THE LEFT EJ 18G.
--- NOTE | 2020-03-02 07:24 | NUR ---
ENDORSED PATIENT TO DAY SHIFT NURSE FOR CONTINUITY OF CARE.
[2020-03-02 08:00] VITALS: BP 153/82
--- NOTE | 2020-03-02 08:00 | NUR ---
RECEIVED REPORT FROM DISTRIBUTION ENGINEERING TECHNOLOGIST FOR CONTINUITY OF CARE. PATIENT ASLEEP, AROUSABLE TO NAME AND TOUCH. WITH IVF ON GOING AND INFUSING WELL.ON ROOM AIR SATURATION 96%. ON MONITOR SHOWS SR. WILL CONTINUE TO MONITOR.
[2020-03-02 08:07] LABS: EOSINOPHILS % (AUTO) 0.2 % (0.0-4.0); HEMOGLOBIN 12.6 g/dL (12.0-16.0); LYMPHOCYTES # (AUTO) 0.8 K/uL (2.5-16.5); LYMPHOCYTES % (AUTO) 13.8 % (20.5-51.1); MEAN CORPUSCULAR HEMOGLOBIN 27 pg (27-31); MEAN CORPUSCULAR HGB CONC 32 g/dL (33-37); MEAN CORPUSCULAR VOLUME 83.7 fL (80-94); MONOCYTES # (AUTO) 0.3 K/uL (0.8-1.0); MONOCYTES % (AUTO) 5.2 % (1.7-9.3); NEUTROPHILS # (AUTO) 4.5 K/uL (1.8-7.7); NEUTROPHILS % (AUTO) 80.8 % (42.2-75.2); PLATELET COUNT (AUTO) 136 K/uL (140-450); RED BLOOD CELL COUNT(AUTO) 4.66 MIL/uL (4.20-5.40); RED CELL DISTRIBUTION WIDTH 15.5 % (11.6-13.7); WHITE BLOOD COUNT (AUTO) 5.6 K/uL (4.8-10.8)
[2020-03-02 08:50] LABS: ALBUMIN 2.6 g/dL (3.4-5.0); ANION GAP 15.6 (8-16); ASPARTATE AMINOTRANSFERASE 89 U/L (15-37); CARBON DIOXIDE 25.3 mmol/L (21-32); CHLORIDE 112 mmol/L (98-107); CREATININE 1.1 mg/dL (0.6-1.3); GLUCOSE 287 mg/dL (74-106); MAGNESIUM 1.3 mg/dL (1.8-2.4); SODIUM SERUM 150 mmol/L (136-145); UREA NITROGEN, BLOOD 26 mg/dL (7-18)
[2020-03-02] MEDS ORDERED: RIVAROXABAN 10 MG TAB PO SCH (09:00)
[2020-03-02 09:03] LABS: POTASSIUM 2.9 mmol/L (3.5-5.1)
[2020-03-02] MEDS: amLODIPine 5 MG TAB PO SCH (09:13)
[2020-03-02] MEDS: MULTIVITAMIN 1 TAB PO SCH (09:13)
[2020-03-02] MEDS: METOPROLOL SUCCINATE 50 MG TABER PO SCH ×2 (09:13→21:23)
--- NOTE | 2020-03-02 09:45 | NUR ---
DUE MEDICATION GIVEN AND TOLERATED WELL. PATIENT IS A FEEDER, TRIED TO FEED PATIENT WITH PUREED DIET AND OBSERVED TO HAVE COUGHING. WAITING FOR SWALLOW EVAL. WILL CONTINUE TO MONITOR.
[2020-03-02] MEDS: DEXT 5% / NACL 0.45% 1,000 ML IV SCH (11:50)
[2020-03-02 12:00] VITALS: BP 153/85
[2020-03-02] MEDS ORDERED: RIVAROXABAN 15 MG TAB PO SCH (14:00)
[2020-03-02] MEDS: KCL 20 MEQ/WATER INJ PREMIX 200 ML IV PRN (15:36)
[2020-03-02 16:00] VITALS: BP 152/75
--- NOTE | 2020-03-02 16:10 | NUR ---
*ST: Bedside Swallow Evaluation* Pt is 89 yo F BIBA from [facility] 02/27/2020 c hypoxia, tachycardia, (+) COVID-19 rapid Ag 02/27. PMHx dementia, Afib, HTN, DM, HLD. Noted Pt was brought into ER prior week after vomitting post COVID-19 vaccination. CXR 02/26 - possible enlarged pulmonary arteries, suggesting pulmonary arterial HTN; L > R basilar subsegmental ATX and/or scarring; CAD. Cleared with RN, Kenn, for BDSE. Per RN, Pt had episode of coughing with PO meds crushed and mixed with apple sauce this AM, resulting in this swallow evaluation consult. RN also noted some spillage from pts L labial seal. Per chart, Pt received Puree/Thin Liquids at [facility] prior to admit. Pt seen bedside, on +COVID-19 isolation precautions, on room air, O2 sats ranging from 92-95% during session. Pt looked at speaker but no phonation emitted/elicited. As session progressed, Pt would shake her head or use her R hand to wave/block stimuli. ~2oz pureed peaches, ~1oz apple sauce, ~25ml thin water, and ~20ml nectar thick liquids given. Pt initially stripped 100% of puree from tsp, stripped ~70% of liquid bolus from tsp, engaged in a chewing-like motion with all POs offered, noted slight leakage from R labial seal but did not pass the lower lip, no oral residue. At one point with puree, Pt seemed to gag/retch but no emesis occurred. With liquids, Pt consistently coughed. SCREEN OPERATOR attempted further PO trials of puree and initial honey thick liquid, but Pt consistently shook her head and raised her R hand to wave/block stimuli offered. Results d/w pts RN. P: Rec NPO, oral care every 2-4 hrs Okay for PO meds crushed and mixed with apple sauce SCREEN OPERATOR f/u for ongoing swallow analysis -Thuy Ji MA, [facility]-SCREEN OPERATOR Addendum: 03/02/20 at [address] Amended: Links added.
--- NOTE | 2020-03-02 18:54 | NUR ---
PATIENT UNABLE TO PASS SWALLOW EVAL, KEEP NPO EXCEPT MEDS. NEEDS ATTENDED. WILL CONTINUE TO MONITOR. AND WILL ENDORSE TO THE NEXT SHIFT.
--- NOTE | 2020-03-02 18:56 | NUR ---
HEPARIN DC'D. STARTED ON XARELTO. WILL ENDORSE TO THE NEXT SHIFT.
--- NOTE | 2020-03-02 19:30 | NUR ---
RECEIVED BEDSIDE REPORT FROM DAY SHIFT NURSE. PATIENT AWAKE, RESPIRATION EVEN UNLABORED ON ROOM AIR. NO DISTRESS NOTED. SKIN IS WARM AND DRY. IV PATENT AND INTACT. PLAN OF CARE WAS DISCUSSED. ALL SAFETY MEASURES IN PLACE. BED IS AT LOW POSITION. CALL LIGHT WITHIN REACH. WILL CONTINUE TO MONITOR
[2020-03-02 20:00] VITALS: BP 139/72
[2020-03-02] MEDS: ATORVASTATIN 20 MG TAB PO SCH (21:23)
--- NOTE | 2020-03-02 21:25 | NUR ---
ALL SCHEDULED MEDS WERE GIVEN PER ORDER. NO ASE NOTED. WILL CONTINUE TO MONITOR.
--- NOTE | 2020-03-02 21:30 | NUR ---
MADE ROUNDS. PATIENT SLEEPING RESPIRATION EVEN UNLABORED ON ROOM AIR. NO DISTRESS NOTED. WILL CONTINUE TO MONITOR.
[2020-03-03] VITALS: BP 127/78
[2020-03-03] MEDS: DEXT 5% / NACL 0.45% 1,000 ML IV SCH ×2 (01:50→12:50)
--- NOTE | 2020-03-03 02:13 | NUR ---
MADE ROUNDS. PATIENT SLEEPING RESPIRATION EVEN UNLABORED ON ROOM AIR. NO DISTRESS NOTED. WILL CONTINUE TO MONITOR.
[2020-03-03 04:00] VITALS: BP 138/70
--- NOTE | 2020-03-03 04:20 | NUR ---
MORNING CARE PROVIDED
[2020-03-03 06:51] LABS: BASOPHILS % (AUTO) 0.1 % (0.0-2.0); EOSINOPHILS % (AUTO) 0.2 % (0.0-4.0); HEMOGLOBIN 13.3 g/dL (12.0-16.0); LYMPHOCYTES % (AUTO) 16.8 % (20.5-51.1); MEAN CORPUSCULAR HEMOGLOBIN 28 pg (27-31); MEAN CORPUSCULAR HGB CONC 33 g/dL (33-37); MEAN CORPUSCULAR VOLUME 83.8 fL (80-94); MONOCYTES # (AUTO) 0.3 K/uL (0.8-1.0); MONOCYTES % (AUTO) 5.4 % (1.7-9.3); NEUTROPHILS # (AUTO) 4.5 K/uL (1.8-7.7); NEUTROPHILS % (AUTO) 77.5 % (42.2-75.2); PLATELET COUNT (AUTO) 146 K/uL (140-450); RED BLOOD CELL COUNT(AUTO) 4.77 MIL/uL (4.20-5.40); RED CELL DISTRIBUTION WIDTH 15.6 % (11.6-13.7); WHITE BLOOD COUNT (AUTO) 5.8 K/uL (4.8-10.8)
[2020-03-03 06:57] LABS: ALBUMIN 2.8 g/dL (3.4-5.0); ANION GAP 13.7 (8-16); ASPARTATE AMINOTRANSFERASE 72 U/L (15-37); CARBON DIOXIDE 25.6 mmol/L (21-32); CHLORIDE 109 mmol/L (98-107); CREATININE 0.9 mg/dL (0.6-1.3); GLUCOSE 353 mg/dL (74-106); MAGNESIUM 2.1 mg/dL (1.8-2.4); POTASSIUM 3.3 mmol/L (3.5-5.1); SODIUM SERUM 145 mmol/L (136-145); TOTAL BILIRUBIN 1.2 mg/dL (0.0-1.0); UREA NITROGEN, BLOOD 20 mg/dL (7-18)
--- NOTE | 2020-03-03 07:18 | NUR ---
ENDORSED PATIENT TO DAY SHIFT NURSE FOR CONTINUITY OF CARE
[2020-03-03 08:00] VITALS: BP 147/56
[2020-03-03] MEDS ORDERED: POTASSIUM CHLORIDE 40 MEQ, LIDOCAINE MPF 1% 25 MG in NACL 0.9% 250 ML IV SCH (10:00)
[2020-03-03] MEDS: MULTIVITAMIN 1 TAB PO SCH (10:39)
[2020-03-03] MEDS: METOPROLOL SUCCINATE 50 MG TABER PO SCH (10:40)
[2020-03-03] MEDS: amLODIPine 5 MG TAB PO SCH (10:40)
[2020-03-03 12:00] VITALS: BP 138/70
[2020-03-03] MEDS ORDERED: FLUC200T PO (15:00)
--- NOTE | 2020-03-03 15:10 | NUR ---
CALLED [facility] AT [phone] AND GAVE REPORT TO CHRIS FOWLER REGARDING THE CARE MANAGEMENT OF PT AND VERBALIZED UNDERSTANDING.
--- NOTE | 2020-03-03 15:39 | NUR ---
03/03/20 RD FOLLOW UP COMPLETED PLEASE REFER TO NUTRITION ASSESSMENT UNDER CARE ACTIVITY FOR ESTIMATED NUTRITIONAL NEEDS. 1. CONTINUE NPO 2. CONSIDER ENTERAL NUTRITION 3. RD TO FOLLOW-UP 2-3 DAYS, HIGH RISK MEDINA MARTINEZ RD
--- NOTE | 2020-03-03 16:26 | NUR ---
*ST: Follow-up Swallow Tx / Ongoing Swallow Analysis* Cleared with RN, Lynda, for f/u PO trials with SPECIAL ASSEMBLIES SUPERVISOR. Pt not appropriate for POs per BDSE done yesterday, 03/02/2020. Noted Pts PLOF was Puree/Thin Liquids at [facility] prior to admit. Per RN, Pt consistently coughed with water by tsp. RN noted that Pt is planning on being D/C to [facility] later today. Pt noted to be DNR/DNI. Pt seen bedside, on +COVID-19 isolation precautions, eyes open, lying/sitting on her L side, R arm approximating to L bedrail. Pt on room air, O2 sats 94% during session. With initial tsp presentation of apple sauce, Pt consistently shook her head and kept her mouth closed. With tsp nectar thick apple juice by tsp, Pt stripped bolus from tsp, engaged in munching motion, suspect poor control of bolus, prolonged coughing before/during/after swallow. Follow-up nectar thick apple juice and thin water by tsp given with same result. SPECIAL ASSEMBLIES SUPERVISOR then f/u with apple sauce by tsp with same behavior observed. Further PO trials deferred 2/2 responses above. Results and recommendations d/w Pt and Pts RN. P: Recommend strict NPO, oral care every 2-4 hrs Recommend consider non-oral means of nutrition and medications if aligned with Pt/family wishes -Thuy Ji MA, [facility]-SPECIAL ASSEMBLIES SUPERVISOR Addendum: 03/03/20 at [address] Amended: Links added.
--- NOTE | 2020-03-03 16:37 | NUR ---
[place] [facility] [place]SPORT PERSONNEL, IV LINE AND ARM BANDS REMOVED, PT IS STABLE AT THIS TIME.
--- NOTE | 2020-03-04 07:25 | NUR ---
RECEIVED PT FROM BACK MAKER NURSE, PT IS ALOC, WITH A RT EJ INSERTED, SAFETY AND FALL PRECAUTION IN PLACE, NO SIGN OF DISTRESS NOTED AND WILL MONITOR PT.
--- NOTE | 2020-03-04 13:30 | NUR ---
PT WAS CLEANED AND REPOSITIONED NOW.
== END 2020-03-03 16:46 | DRG 871 ==
LOC: MED 17:36 → MTU 20:22 → MMU 03-02 20:12
PROVIDERS: ADMIT Internal Medicine; ATTEND Internal Medicine
DX: A41.9 Sepsis, unspecified organism (principal); U07.1 COVID-19; I21.4 Non-ST elevation (NSTEMI) myocardial infarction; E87.0 Hyperosmolality and hypernatremia; B37.49 Other urogenital candidiasis; J98.11 Atelectasis; Z66 Do not resuscitate; E11.9 Type 2 diabetes mellitus without complications; E78.5 Hyperlipidemia, unspecified; F02.80 Dementia in other diseases classified elsewhere, unspecified severity, without behavioral disturbance, psychotic disturbance, mood disturbance, and anxiety; G30.9 Alzheimer's disease, unspecified; I10 Essential (primary) hypertension; Z96.649 Presence of unspecified artificial hip joint; I48.91 Unspecified atrial fibrillation; E87.6 Hypokalemia; Z79.899 Other long term (current) drug therapy
CPT/HCPCS: 36415; 71045; 80053; 81001; 83605; 83690; 83735; 83880; 84484; 85025; 85379; 85610; 85730; 87040; 87086; 92526; 92610; 96374; 96376; 99291; C1758; J0153; J0696; J1644; J2001; J3475; J3480; J3490; J7030; J7060